=== PATIENT | male | born 1970 | race Caucasian/White ===

== ENCOUNTER 2024-04-16 07:41 | Emergency (ER) | payer MEDICARE, MEDICAID, SELFPAY ==
[2024-04-16 07:45] VITALS: BP 162/86; PULSE 104; RESP 18; TEMP 36.5; O2SAT 97
--- OUTSIDE RECORDS SUMMARY | 2024-04-16 08:25 | XMS_ITS | Encounter Summary ---
Author Organization [facility] Address [address] [place] [address] Care Team Providers Care Gray Tender Name Role Phone Kahlil Walker MD Primary Care Provider [phone] Reason for Visit * Reason Comments Med Refill Encounter Details Date Type Department Care Team (Late st Contact Info) Description 05/07/2022 Refill [facility] Medical [facility] Family Medicine [address] [place] [phone] Kahlil aWlker MD [address] [place] [address] Bilateral low back pain with sciatica, sciatica laterality unspecified, unspecified chronicity; Failed back syndrome; Chronic pain syndrome; Incomplete paraplegia (HCC); Lumbar radiculopathy Social History Tobacco Use Types Packs/Day Years Used Date Smoking Tobacco: Former Cigarettes Q uit: 2000 Smokeless Tobacco: Never Alcohol Use Standard Drinks/Week Comments No 0 (1 standard drink = 0.6 oz pur e alcohol) AUDIT-C Answer Date Recorded Frequency of Alcohol Consumption Never 12/19/2017 Average Number of Drinks Not on file 018 Frequency of Binge Drinking Not on file 11/22 PHQ-2 Answer Date Recorded PHQ-2 Score 0 08/04/2020 Sex and Gender Information Value Date Recorded Sex Assigned at Not on file Legal Sex Male 8:49 PM CDT Gender Identity Not on file Sexual Orientation Not on file documented as of this encounter Miscellaneous Notes * Telephone Encounter - Aimee Cho LPN - 05/07/2022 2:59 PM CDT Rx pended for approval. documented in this encounter Plan of Treatment Not on file documented as of this encounter Visit Diagnoses Diagnosis Bilateral low back pain with sciatica, sciatica laterality unspecified, unspecified chronicity Failed back syndrome Other unspecified back disorder Chronic pain syndrome Incomplete paraplegia (HCC) Lumbar radiculopathy Thoracic or lumbosacral neuritis or radiculitis, unspecified documented in this encounter Care Teams Gray Tender Relationship Specialty Start Date End Date Kahlil Walker MD [facility] [place] [address] PCP - General Family Medicine 08/02/16 documented as of this encounter
--- OUTSIDE RECORDS SUMMARY | 2024-04-16 08:25 | XMS_ITS | Encounter Summary ---
Author Organization [facility] Address Formerly [facility] [place] [address] Care Team Providers Care Toy Consultant Name Role Phone Kahlil Walker MD Primary Care Provider [phone] Encounter Details Date Type Department Care Team (Late st Contact Info) Description 08/15/2019 Orders Only [facility] Family Medicine [address] [place] [address] Kahlil Walker MD [address] [place] [address] Social History Tobacco Use Types Packs/Day Years Used Date Smoking Tobacco: Former Cigarettes Q uit: 2000 Smokeless Tobacco: Never Alcohol Use Standard Drinks/Week Comments No 0 (1 standard drink = 0.6 oz pur e alcohol) AUDIT-C Answer Date Recorded Frequency of Alcohol Consumption Never 12/19/2017 Average Number of Drinks Not on file 018 Frequency of Binge Drinking Not on file 11/22 Sex and Gender Information Value Date Recorded Sex Assigned at Not on file Legal Sex Male 8:49 PM CDT Gender Identity Not on file Sexual Orientation Not on file COVID-19 Exposure Response Date Recorded In the last month, have you been in contact with someone who was confirmed or suspected to have Coronavirus / COVID-19? No / Unsure 07/30/2019 11:48 AM CDT documented as of this encounter Plan of Treatment Not on file documented as of this encounter Visit Diagnoses Not on filedocumented in this encounter Care Teams Toy Consultant Relationship Specialty Start Date End Date Kahlil Walker MD [address] [place] [address] PCP - General Family Medicine 08/02/16 documented as of this encounter
--- OUTSIDE RECORDS SUMMARY | 2024-04-16 08:25 | XMS_ITS | Data Portability ---
Author Organization [place] - [facility] Address [address] [place] [address] Care Team Providers Care Plaster Form Maker Name Role Phone EBENEZER KAMINSKI General Surgeon SATISH DELCID Primary Care Provider [phone] EBENEZER KAMINSKI Referring Provider [phone] MARYSOL MARY Manager Programs [phone] Assessment Encounter Date Assessment Date Assessment LastModified by Organization Details LastModified Time 07/20/2023 07/20/2023 Opiod induce constipation Stable. Takes MOM and mineral oil prn -RTC in 3 months. Not available 07/20/2023 17:03:16 Plan of Treatment Reminders Order Date Submit Date Provider Last Modified By Organization Details Last Modified Time Details Appointments None recorded. Lab None recorded. Referral gastroenter ologist referral 2023 024 [email or web address] Marysol Mary MD, [address] [facility] , [address], [place], [address], 16:53:55 Procedures None recorded. Surgeries None recorded. Imaging None recorded. Medication Orders Relistor 12 mg/0.6 mL subcutaneou s syringe 2023 024 [id number], [address] [place], [address], 11:23:58 Milk of Magnesia 400 mg/5 mL oral suspension 2023 024 [id number], [address] [place], [address], 4 11:23:58 Patient TargetsNo targets recorded. Patient InstructionsNo instructions recorded. Reason for Referral Manager Programs Referral for Chronic constipation chronic opiod induced constipation Referring Physician: Elli Sol, General Surgery, Encounter Date: 07/11/2023 Problems Name Problem SNOMED Code Status Onset Date Resolution Date Notes Provider Name and Address Organization Details Recorded Time Dyspnea [id number] Daryl Kovacs null, [facility] 4 10:47:35 Fatigue 59008675 Active Cheri Kovacs null, [facility] 4 10:47:47 Constipation 84922815 Daryl Kovacs null, [facility] 4 10:49:07 Chronic back pain 179193713 Daryl Kovacs null, [facility] 4 10:49:19 Headache 95894412 Daryl Kovacs null, [facility] 4 10:49:30 Multiple skin tags 344656653 Daryl Kovacs null, [facility] 4 10:50:01 Kidney stone 12434025 Daryl Kovacs null, [facility] 4 10:50:34 Gastroesophage al reflux disease 343371938 Active Marni Leos null, [facility] 4 11:00:15 Essential hypertension 56253514 Daryl Kovacs null, [facility] 4 11:02:35 Arthritis 4219534 Daryl Kovacs null, [facility] 4 11:03:00 Obesity 526556802 Daryl Kovacs null, [facility] 4 11:03:16 Chronic constipation 832178149 Active 2023 ELLI SOL MD [address] [place], [address], [facility] 4 11:17:19 Problem Notes None recorded. Medical Equipment None Reported. Allergies No known drug allergies Medications Name Sig Start Date Stop Date Status Note LastModified by Organization Details LastModified Time Milk of Magnesia 400 mg/5 mL oral suspension Take 30 mL twice a day by oral route. 2023 active Not Available Not Available Not Avai lable famotidine 20 mg tablet Take 1 tablet twice a day by oral route. active Not Available Not Available No t Available Morphine Sulfate CR 60 mg tablet,exten ded release Take 1 tablet every 12 hours by oral route. active Not Available Not Available Not Available hydrocodone 7.5 mg-acetamino phen 325 mg tablet Take 1 tablet every 6 hours by oral route. active Not Available Not Available Not Available pantoprazole 40 mg tablet,delay ed release Take 1 tablet every day by oral route. active Not Available Not Available No t Available gabapentin 300 mg capsule Take 1 capsule 3 times a day by oral route. active Not Available Not Available No t Available metoprolol succinate ER 25 mg tablet,exten ded release 24 hr Take 2 tablets every day by oral route. active Not Available Not Available No t Available docusate sodium active Not Available Not Available Not Available Relistor 12 mg/0.6 mL subcutaneous syringe Inject 0.6 mL by subcutaneou s route for 10 days. 2023 active Not Available Not Available Not Avai lable methylphenid ate active Not Available Not Available Not Available glycopyrrola te (PF) active Not Available Not Available Not Available Vitals Date Recorded Body weight Body mass index (BMI) Body height Heart rate Oxygen saturation Oxygen saturation in Arterial blood by Pulse oximetry Systolic blood pressure Diastolic blood pressure Provider Name and Address Organization Details Last Updated DateTime 4 073385. 79 g 37.7 kg/m2 177.8 cm 87 /min 96 % 96 % 144 mm[Hg] 79 mm[Hg] Cheri Kovacs [facility] 4 10:42:58 Social History Question Answer Notes LastModified by Organizat ion Details LastModified Time Tobacco Smoking Status Former Smoker Cheri brooks [facility] 07/11/2023 10:52:28 What Is Your Level Of Alcohol Consumption? None [email or web address] Information not available 07/11/2023 What Is Your Level Of Caffeine Consumption? Occasional [email or web address] Information not available 07/11/2023 When Did You Quit Smoking? 16+yearssintrudy lux [email or web address] Information not available 07/11/2023 What Was The Date Of Your Most Recent Tobacco Screening? 07/20/2023 [email or web address] Information not available 07/20/2023 What Is Your Current Pack Years? 10packyears [email or web address] Information not available 07/11/2023 How Much Tobacco Do You Smoke? No [email or web address] Information not available 07/11/2023 Do You Use Any Illicit Or Recreational Drugs? No [email or web address] Information not available 07/11/2023 Has Tobacco Cessation Counseling Been Provided? No [email or web address] Information not available 07/11/2023 Do You Or Have You Ever Used Any Other Forms Of Tobacco Or Nicotine? No Information not available 07/11/2023 Sex: Unknown Functional Status None recorded. Mental Status None recorded. Family History Nothing Reported. Medical History Condition Response BLINDNESS N BLADDER PROBLEMS N KIDNEY STONES N SLEEP APNEA N MRSA N ALLERGIES/HAYFEVER N OTHER # 1 N LUNG DISEASE/DISORDER N HISTORY OF DRUG ABUSE N INSOMNIA N RADIATION / CHEMOTHERAPY N COPD N HIGH CHOLESTEROL / HYPERLIPIDEMIA N Other # 2 N BLOOD DISEASES N EDEMA N CAROTID BLOCKAGE N SHINGLES N BACK / NECK PROBLEMS N BOWEL PROBLEMS N DEPRESSION (INCLUDING POST ) N HAVE YOU BEEN HOSPITALIZED OR SEEN [facility] IN THE PAST YEAR ? N MIGRAINES N STROKE/TIA N THYROID DISEASE N BENIGN PROSTATIC HYPERPLASIA N HYPOTENSION N PARAPELGIA N OBESITY N GERD/NAUSEA N HISTORY WITH COMPLICATIONS WITH ANESTHES IA ? N ANEURYSM N FIBROMYALGIA N OSTEOPOROSIS N URINARY/BLADDER/KIDNEY PROBLEMS N CORONARY ARTERY DISEASE (CAD) N Do you have Advance directive? N ARTHRITIS N Do you have a healthcare POA? N USE OF BLOOD THINNERS N NO SIGNIFICANT PAST MEDICAL HISTORY N DIABETES, TYPE N HEARTBURN / REFLUX N GASTROINTESTINAL BLEEDING N Do you have a living will? N BLOOD CLOTS N ASTHMA N HEPATITIS / LIVER DISEASE N PULMONARY DISEASE N USE OF NSAIDS N GOUT N ALZHEIMER'S DISEASE N HERPES N DEMENTIA N HEADACHES/MIGRAINES N SEIZURES/EPILEPSY N CHF N VASCULAR DISEASE N PACEMAKER N Blood Disorder N DIZZINESS N HEART DISEASE/HEART PROBLEMS N NEUROPATHY N AIDS/HIV N KIDNEY DISEASE N CHEMOTHERAPY / RADIATION N LIVER DISEASE N MENTAL DISORDER/ILLNESS N CARDIAC ARRHYTHMIA N CANCER: SPECIFY N TOURETTE'S N BLADDER/KIDNEY N ANXIETY DISORDER N BLOOD TRANSFUSION N ANESTHESIA COMPLICATIONS N ANEMIA/BLOOD DISORDER N ATRIAL FIBRILLATION N BRONCHITIS N AUTOIMMUNE DISEASE N DEAF/HEARING IMPAIRED N TUBERCULOSIS N GLAUCOMA N ABDOMINAL PAIN Y FOOT PROBLEM N Past Encounters Encounter ID Performer Location Encounter Start Date Encounter Closed Date Diagnosis/Indication Diagnosis SNOMED-CT Code Diagnosis ICD10 Code Diagnosis Note [id number] ELLI SOL MD [address] [place] [address] 07/11/2023 10:19:33 07/11/2023 11:25:37 Chronic constipation 867973570 K59.09 52M presenting with chronic constipati on d/t chronic opiod use. I will prescribe him a short course of relistor and milk of magnesia. He will referred to Gastroente rology for further evaluation of chronic constipati on, to r/o functional causes. His last colonoscop y was ~5-6 yrs ago and he refuses one as of now. He may f/u PRN. [id number] MARYSOL MARY MD [address] [place] [address] 07/20/2023 15:33:25 07/20/2023 16:14:09 Constipation 16340828 K59.00 Health Concerns Section Related Observation LastModified by Organization Detai ls LastModified Time None Recorded Concern Status LastModified by Organization Details LastModified Time None Recorded Advance Directives Directive None Recorded Payers Encounter Date Sequence Insurance Name Policy Number Policy Eller Covered Member ID Eller Member ID Guarantor Name 07/11/2023 2 [place] [employer] [facility] [id number] [facility] 07/11/2023 1 [place] Steven Gunn Jr [id number] Steven Gunn 07/20/2023 2 [place] [employer] [place] [employer] Steven [facility] [id number] [facility] 07/20/2023 1 [place] Steven Gunn Jr [id number] Steven Gunn Notes Date Note Type Note Provider Name and Address Organization Details Recorded Time 07/11/2023 text/html 52M presenting w ith chronic constipation. The patient is on chronic opiods for back pain. He was recently hospitalized due to consiptation, which was relieved by Go-lytely administration via NGT. He has been tolerating a diet. His last BM was on 06/28. Denies chest pains/SOB/fevers/chi lls. No nausea/vomiting. His last colonoscopy was ~5-6 yrs ago and he remembers benign results. ELLI SOL MD [address] [place], [address], [facility] 07/11/2023 11:24:47 07/20/2023 text/html This is a 52 y/o WM with hx of chronic back pain, opiod induce constipation, htn, who comes in for tx of chronic constipation. He presently have taken MON and mineral oil and haad several bowel movements. MARYSOL MARY MD [address] [place], [address], [facility] 07/20/2023 17:03:53
--- OUTSIDE RECORDS SUMMARY | 2024-04-16 08:25 | XMS_ITS | Encounter Summary ---
Author Organization [facility] Address [facility] [place] [address] Care Team Providers Care Painter Interior Finish Name Role Phone Kahlil Walker MD Primary Care Provider [phone] Encounter Details Date Type Department Care Team (Late st Contact Info) Description 06/23/2021 Orders Only [facility] Family Medicine [address] [place] [phone] Kahlil Walker MD [address] [place], [place] [address] Failed back syndrome; Chronic low back pain with sciatica, sciatica laterality unspecified, unspecified back pain laterality; ADHD (attention deficit hyperactivity disorder), combined type Social History Tobacco Use Types Packs/Day Years [...] on file documented as of this encounter Plan of Treatment Not on file documented as of this encounter Visit Diagnoses Diagnosis Failed back syndrome Other unspecified back disorder Chronic low back pain with sciatica, sciatica laterality unspecified, unspecified back pain laterality ADHD (attention deficit hyperactivity disorder), combined type Attention deficit disorder with hyperactivity documented in this encounter Care Teams Painter Interior Finish Relationship Specialty Start Date End Date Kahlil Walker MD [address] [place] [address] PCP - General Family Medicine 08/02/16 documented as of this encounter
--- OUTSIDE RECORDS SUMMARY | 2024-04-16 08:25 | XMS_ITS | Encounter Summary ---
Author Organization [facility] Address [facility]ly [facility], [facility] [place] [address] Care Team Providers Care Senior Talent Acquisition Specialist Name Role Phone Kahlil Walker MD Primary Care Provider [phone] Encounter Details Date Type Department Care Team (Late st Contact Info) Description 01/20/2022 Orders Only [facility] Family Medicine [address] [phone] Kahlil Walker MD [address] [place], [place] [address] Failed back syndrome; Chronic low back pain [...] hyperactivity documented in this encounter Care Teams Senior Talent Acquisition Specialist Relationship Specialty Start Date End Date Kahlil Walker MD [address] [place] [address] PCP - General Family Medicine 08/02/16 documented as of this encounter
--- OUTSIDE RECORDS SUMMARY | 2024-04-16 08:25 | XMS_ITS | Encounter Summary ---
Author Organization [facility] Address [facility] [place] [address] Care Team Providers Care Marine Cargo Surveyor Name Role Phone Kahlil Walker MD Primary Care Provider Reason for Visit * Reason Comments Med Refill Encounter Details Date Type Department Care Team (Late st Contact Info) Description 07/07/2020 Refill [facility] Family Medicine [address] [place] [phone] Kahlil Walker MD [address] [place] [address] Social History Tobacco Use Types Packs/Day Years [...] on filedocumented in this encounter Care Teams Marine Cargo Surveyor Relationship Specialty Start Date End Date Kahlil Walker MD [address] [place] [address] PCP - General Family Medicine 08/02/16 documented as of this encounter
--- OUTSIDE RECORDS SUMMARY | 2024-04-16 08:25 | XMS_ITS | Clinical Summary ---
Author Organization [facility] Address [facility] [place] [address] Care Team Providers Care Green Chain Puller Name Role Phone Unavailable Primary Care Provider Unavailabl e Social History Tobacco Use Types Packs/Day Years Used Date Smoking Tobacco: Never Assessed Sex and Gender Information Value Date Recorded Sex Assigned at Not on file Legal Sex Male 10:42 AM CDT Gender Identity Not on file Sexual Orientation Not on file Plan of Treatment Health Maintenance Due Date Last Done Comments Colorectal Cancer Screening Colonoscopy (10 Years) 1972 Annual Physical 12/30/1975 Hepatitis C 1990 DTaP, Tdap and Td Vaccines ( 1 - Tdap) 12/30/1991 Hepatitis B Vaccines (1 of 3 - 19+ 3-dose series) 12/30/1991 Zoster Vaccines (1 of 2) 2022 COVID-19 Vaccine ( - 2023-2 5 season) 2023 Influenza Adult (#1) 2023 Meningococcal B Vaccine Aged Out No l onger eligible based on patient's age to complete this topic Meningococcal Vaccine Aged Out No av sharlene eligible based on patient's age to complete this topic Pneumococcal Vaccine: Pediat rics (0 to 5 Years) and At-Risk Patients (6 to 64 Years) Aged Out No longer eligible b ased on patient's age to complete this topic RSV Immunizations Under 20 Months Aged Out No longer eligible based on patient's age to complete this topic Insurance MEDICARE MEDICAID
--- OUTSIDE RECORDS SUMMARY | 2024-04-16 08:25 | XMS_ITS | Referral Summary ---
Author Organization [facility] Address [address] [place] [address] Care Team Providers Care Bankruptcy Legal Assistant Name Role Phone Kahlil Walker MD Primary Care Provider Allergies Active Allergy Reactions Criticality Noted Date Comments Adhesive Other (See comments) High 03/12/2014 Other reaction(s): some tapes and bandaids cause rash Paper tape only Medications famotidine (PEPCID) 20 mg tabletIndications: Heartburn Take 20 mg by mouth 2 (two) times a day 1 Active gabapentin (NEURONTIN) 600 mg tabletIndications: Neuropathic Pain Take 600 mg by mouth 4 (four) times a day 1 Active glycopyrrolate (ROBINUL) 1 mg tabletIndications: Irritable Bowel Syndrome,sweating Take 1 mg by mouth 3 (three) times a day 1 Active methylphenidate ER (METADATE ER) 20 mg CR tabletIndications: Attention-Deficit Hyperactivity Disorder Take 60 mg by mouth every morning 1 Active metoprolol XL (TOPROL-XL) 50 mg extended release tabletIndications: hypertension Take 50 mg by mouth every morning 1 Active morphine ER (MS CONTIN) 60 mg 12 hr tabletIndications: severe chronic pain requiring long-term opioid treatment Take 60 mg by mouth 2 (two) times a day [address] (PROTONIX) 40 mg EC tabletIndications: Treatment of Non-Bleeding Gastric Disorder Take 40 mg by mouth every morning 1 Active valACYclovir (VALTREX) 1 gram tabletIndications: cold sore flare up Take 1,000 mg by mouth as needed 1 Active oxyCODONE (ROXICODONE) 10 mg tabletIndications: Pain Take 1 tablet (10 mg total) by mouth every 4 (four) hours as needed for pain 40 tablet 1 Active aspirin 81 mg enteric coated tabletIndications: Deep Vein Thrombosis Prevention Take 1 tablet (81 mg total) by mouth 2 (two) times a day for 14 days 28 tablet 1 Active acetaminophen 500 mg capsuleIndications :Pain Take 2 capsules (1,000 mg total) by mouth every 6 (six) hours 100 tablet 1 Active cyclobenzaprine (FLEXERIL) 10 mg tablet Take 1 tablet (10 mg total) by mouth every 8 (eight) hours as needed for muscle spasms 30 tablet 1 Active docusate sodium (COLACE) 100 mg capsuleIndications :constipation Take 1 capsule (100 mg total) by mouth 2 (two) times a day 30 capsule 1 Active Active Problems Problem Noted Date Diagnosed Date Rotator cuff arthropathy of right shoulder 01/02 Overview (01/02/2021): Added automatically from request for surgery [id number] Acquired hypothyroidism 06/06/2020 Fever blister 12/28/2017 Palpitations 12/28/2017 Chronic fatigue 07/14/2017 Essential hypertension 07/14/2017 Hypogonadism in male 03/16/2017 Excessive sweating 11/12/2016 Vision changes 11/12/2016 ADHD (attention deficit hype ractivity disorder), combined type 08/02/2016 Chronic pain syndrome 07/02/2015 Incomplete paraplegia (CMS/HCC) 07/02/2015 Lumbar radiculopathy 09/18/2014 Myositis 05/28/2014 Low back pain 10/27/2012 Social History Tobacco Use Types Packs/Day Years Used Date Smoking Tobacco: Former Cigarettes 1 15 1 985 - 1999 Smokeless Tobacco: Former AUDIT-C Answer Date Recorded Q1: How often do you have a drink containing alc ohol? Never 01/27/2021 Average Number of Drinks Not on file 021 Frequency of Binge Drinking Not on file 08/2020 Sex and Gender Information Value Date Recorded Sex Assigned at Not on file Legal Sex Male 6:14 AM LIGHT FIXTURE SERVICER Gender Identity Not on file Sexual Orientation Not on file Last Filed Vital Signs Vital Sign Reading Time Taken Comments Blood Pressure 145/75 02/01/2021 4:03 PM LIGHT FIXTURE SERVICER Pulse 90 02/01/2021 4:03 PM LIGHT FIXTURE SERVICER Temperature 36.4 C (97.6 F) 02/01/2021 3:39 PM LIGHT FIXTURE SERVICER Respiratory Rate 16 02/01/2021 3:39 PM LIGHT FIXTURE SERVICER Oxygen Saturation 98% 02/01/2021 3:39 PM LIGHT FIXTURE SERVICER Inhaled Oxygen Concentration - - Weight 125.6 kg (276 lb 14.4 oz) 01/29/2021 4:40 PM LIGHT FIXTURE SERVICER Height 177.8 cm (5' 10 ) 01/29/2021 4:40 PM LIGHT FIXTURE SERVICER Body Mass Index 39.73 01/29/2021 4:40 PM LIGHT FIXTURE SERVICER Plan of Treatment Not on file Medical Devices Implanted Type Area Flue Tile Press Operator Device Identifier Shelf Expiration Date Model / Serial / Lot [employer] Inc [id number] Aequalis Perform Reversed Od6.5 Mm L40 Mm Central Glenoid Screw Baseplate Nonsterile - [id number] Implanted:Qty: 1 on 01/29/2021 by Chadwick Mena MD at [facility] Screw Right: Shoulder [employer] [id number] / / [employer] [id number] Aequalis Perform Reversed 5mm 34mm Peripheral Glenoid Screw - [id number] Implanted:Qty: 1 on 01/29/2021 by Chadwick Mean MD at [facility] Screw Right: Shoulder [employer] [id number] / / [employer] [id number] Aequalis Perform Reversed Od5 Mm L46 Mm Peripheral Glenoid Screw Baseplate Nonsterile - [id number] Implanted:Qty: 1 on 01/29/2021 by Chadwick Mena MD at [facility] Screw Right: Shoulder [employer] [id number] / / [employer] [id number] Tornier Aequalis Perform 25mm Lateralize Augment Reverse Shoulder - [id number] - [id number] Implanted:Qty: 1 on 01/29/2021 by Chadwick Mena MD at [facility] Right: Shoulder [employer] [id number] 09/22/2025 [id number] / [id number] / [employer] [id number] Insert Perform [id number] - [id number] - [id number] Implanted:Qty: 1 on 01/29/2021 by Chadwick Mena MD at [facility] Right: Shoulder [employer] [id number] 11/01/2024 [id number] / [id number] / [employer] [id number] Stem Perform Sz 3 Humeral - [id number] - [id number] Implanted:Qty: 1 on 01/29/2021 by Chadwick Mena MD at [facility] Right: Shoulder [employer] [id number] 03/23/2025 [id number] / [id number] / [employer] [id number] Tornier Aequalis Perform 39mm Reverse Shoulder Standard Sphere - [id number] Implanted:Qty: 1 on 01/29/2021 by Chadwick Mena MD at [facility] [employer] [id number] / / Insurance MEDICARE [facility] Advance Directives For more information, please contact: [phone] * Full Code (Latest Code Status on File) Date Activated Date Inactivated Comments 01/29/2021 4:51 PM 02/01/2021 10:25 PM Care Teams Bankruptcy Legal Assistant Relationship Specialty Start Date End Date Kahlil Walker MD PCP - General Family Practice 12/23/20
--- OUTSIDE RECORDS SUMMARY | 2024-04-16 08:25 | XMS_ITS | Encounter Summary ---
Author Organization [facility] Address [facility] [place] [address] Care Team Providers Care Marinator Name Role Phone Kahlil Walker MD Primary Care Provider [phone] Encounter Details Date Type Department Care Team (Late st Contact Info) Description 05/21/2019 Orders Only [facility] Family Medicine [address] [place] [phone] Kahlil Walker MD [address] [place], [place] [address] Social History Tobacco Use Types Packs/Day Years [...] on filedocumented in this encounter Care Teams Marinator Relationship Specialty Start Date End Date Kahlil Walker MD [address] [place] [address] PCP - General Family Medicine 08/02/16 documented as of this encounter
--- OUTSIDE RECORDS SUMMARY | 2024-04-16 08:25 | XMS_ITS | Encounter Summary ---
Author Organization [facility] Address [facility] [place] [address] Care Team Providers Care Intelligence Consultant Name Role Phone Kahlil Walker MD Primary Care Provider [phone] Encounter Details Date Type Department Care Team (Late st Contact Info) Description 05/12/2022 Orders Only [facility] Family Medicine [address] [place] [address] Kahlil Walker MD [address] [place], [place] [id number] Failed back syndrome; Chronic low back pain with sciatica, sciatica laterality unspecified, unspecified back pain laterality Social History Tobacco Use Types Packs/Day Years [...] sciatica laterality unspecified, unspecified back pain laterality documented in this encounter Care Teams Intelligence Consultant Relationship Specialty Start Date End Date Kahlil Walker MD [address] [place] [address] PCP - General Family Medicine 08/02/16 documented as of this encounter
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
--- OUTSIDE RECORDS SUMMARY | 2024-04-16 08:25 | XMS_ITS | Encounter Summary ---
Author Organization [facility] Address [address] [place] [address] Care Team Providers Care Bicycle Racer Name Role Phone Kahlil Walker MD Primary Care Provider [phone] Reason for Visit * Reason Comments Med Refill Encounter Details Date Type Department Care Team (Late st Contact Info) Description 03/09/2019 Refill [facility] Medical [facility] Family Medicine [address] [place] [phone] Kahlil Walker MD [address] [place] [address] Attention deficit hyperactivity disorder (ADHD), predominantly inattentive type; Chronic low back pain with sciatica, sciatica laterality unspecified, unspecified back pain laterality; Failed back syndrome Social History Tobacco Use Types Packs/Day Years [...] as of this encounter Visit Diagnoses Diagnosis Attention deficit hyperactivity disorder (ADHD), 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
--- OUTSIDE RECORDS SUMMARY | 2024-04-16 08:25 | XMS_ITS | Encounter Summary ---
Author Organization [facility] Address [address] [place] [address] Care Team Providers Care Keyboard Instrument Tuner Name Role Phone Kahlil Walker MD Primary Care Provider [phone] Reason for Visit * Reason Comments Med Refill Encounter Details Date Type Department Care Team (Late st Contact Info) Description 03/09/2019 Refill [facility] Medical [facility] Family Medicine [address] [place] [phone] Kahlil Walker MD [address] [place] [address] Attention deficit hyperactivity disorder (ADHD), predominantly inattentive [...] disorder documented in this encounter Care Teams Keyboard Instrument Tuner Relationship Specialty Start Date End Date Kahlil Walker MD [address] [place], [place] [address] PCP - General Family Medicine 08/02/16 documented as of this encounter
--- OUTSIDE RECORDS SUMMARY | 2024-04-16 08:25 | XMS_ITS | Encounter Summary ---
Author Organization [facility] Address [facility] [place] [address] Care Team Providers Care Director Financial Services Name Role Phone Kahlil Walker MD Primary Care Provider [phone] Encounter Details Date Type Department Care Team (Late st Contact Info) Description 11/12/2021 Telephone [facility] Medical Group Family Medicine [address] [place] [phone] Kahlil Walker MD [address] [place], [place] [phone] Social History Tobacco Use Types Packs/Day Years [...] on filedocumented in this encounter Care Teams Director Financial Services Relationship Specialty Start Date End Date Kahlil Walker MD [address] [place], [place] [id number] PCP - General Family Medicine 08/02/16 documented as of this encounter
--- OUTSIDE RECORDS SUMMARY | 2024-04-16 08:26 | XMS_ITS | Encounter Summary ---
Author Organization [facility] Address [facility] [place] [address] Care Team Providers Care Mapping Pilot Name Role Phone Kahlil Walker MD Primary Care Provider [phone] Encounter Details Date Type Department Care Team (Late st Contact Info) Description 11/14/2023 Orders Only [facility] Medical Group Family Medicine [address] [place] [address] Kahlil Walker MD [address] [place], [place] [id number] Failed back syndrome; Chronic low back pain [...] hyperactivity documented in this encounter Care Teams Mapping Pilot Relationship Specialty Start Date End Date Kahlil Walker MD [address] [place] [address] PCP - General Family Medicine 08/02/16 documented as of this encounter
--- OUTSIDE RECORDS SUMMARY | 2024-04-16 08:26 | XMS_ITS | Encounter Summary ---
Author Organization [facility] Address [facility] [place] [address] Care Team Providers Care Relief Operator Name Role Phone Kahlil Walker MD Primary Care Provider [phone] Reason for Visit * Reason Comments Med Refill Encounter Details Date Type Department Care Team (Late st Contact Info) Description 01/10/2017 Refill [facility] Medical [facility] Family Medicine [address] [place] [phone] Kahlil Walker MD [address] [place] [address] Social History Tobacco Use Types Packs/Day Years [...] on filedocumented in this encounter Care Teams Relief Operator Relationship Specialty Start Date End Date Kahlil Walker MD [address] [place] [address] PCP - General Family Medicine 08/02/16 documented as of this encounter
--- OUTSIDE RECORDS SUMMARY | 2024-04-16 08:26 | XMS_ITS | Encounter Summary ---
Author Organization [facility] Address [facility] [place] [address] Care Team Providers Care Commercial Underwriter Name Role Phone Kahlil Walker MD Primary Care Provider [phone] Reason for Visit * Reason Comments Med Refill Encounter Details Date Type Department Care Team (Late st Contact Info) Description 04/12/2017 Refill [facility] Medical [facility] Family Medicine [address] [place] [phone] Kahlil Walker MD [address] [place] [address] Social History Tobacco Use Types Packs/Day Years [...] on filedocumented in this encounter Care Teams Commercial Underwriter Relationship Specialty Start Date End Date Kahlil Walker MD [address] [place] [address] PCP - General Family Medicine 08/02/16 documented as of this encounter
--- OUTSIDE RECORDS SUMMARY | 2024-04-16 08:26 | XMS_ITS | Encounter Summary ---
Author Organization [facility] Address [facility] [place] [address] Care Team Providers Care Paint Line Supervisor Name Role Phone Kahlil Walker MD Primary Care Provider [phone] Reason for Visit * Reason Comments Med Refill Encounter Details Date Type Department Care Team (Late st Contact Info) Description 10/07/2017 Refill [facility] Medical [facility] Family Medicine [address] [place] [phone] Kahlil Walker MD [address] [place] [address] Social History Tobacco Use Types Packs/Day Years [...] on filedocumented in this encounter Care Teams Paint Line Supervisor Relationship Specialty Start Date End Date Kahlil Walker MD [address] [place] [address] PCP - General Family Medicine 08/02/16 documented as of this encounter
--- OUTSIDE RECORDS SUMMARY | 2024-04-16 08:26 | XMS_ITS | Encounter Summary ---
Author Organization [facility] Address [facility] [place] [address] Care Team Providers Care Shellacker Name Role Phone Kahlil Walker MD Primary Care Provider Reason for Visit * Reason Comments Med Refill Encounter Details Date Type Department Care Team (Late st Contact Info) Description 03/31/2020 Refill [facility] Family Medicine [address] [place] [phone] Kahlil Walker MD [address] [place] [address] Social History Tobacco Use Types Packs/Day Years [...] on filedocumented in this encounter Care Teams Shellacker Relationship Specialty Start Date End Date Kahlil Walker MD [address] [place] [address] PCP - General Family Medicine 08/02/16 documented as of this encounter
--- OUTSIDE RECORDS SUMMARY | 2024-04-16 08:26 | XMS_ITS | Encounter Summary ---
Author Organization [facility] Address [facility] [place] [address] Care Team Providers Care Recycling Worker Name Role Phone Kahlil Walker MD Primary Care Provider [phone] Reason for Visit * Reason Comments Med Refill Encounter Details Date Type Department Care Team (Late st Contact Info) Description 04/14/2020 Refill [facility] Medical Group Family Medicine [address] [place] [phone] Kahlil Walker MD [address] [place] [address] Social History Tobacco Use Types Packs/Day Years [...] on filedocumented in this encounter Care Teams Recycling Worker Relationship Specialty Start Date End Date Kahlil Walker MD [address] [place] [address] PCP - General Family Medicine 08/02/16 documented as of this encounter
--- OUTSIDE RECORDS SUMMARY | 2024-04-16 08:26 | XMS_ITS | Encounter Summary ---
Author Organization [facility] Address [address] [place] [address] Care Team Providers Care Rate Reviewer Name Role Phone Kahlil Walker MD Primary Care Provider [phone] Encounter Details Date Type Department Care Team (Late st Contact Info) Description 01/24/2024 Orders Only [facility] Family Medicine [address] [place] [address] Kahlil Walker MD [address] [place] [address] Encounter for long-term opiate analgesic use (Primary Dx); Chronic pain syndrome Social History Tobacco Use Types Packs/Day [...] on file documented as of this encounter Results * Drug Screen, Pain Management Reflex to Quantitative, Urine (03/12/2024 2:37 PM PROFESSOR COMPUTER SCIENCE) Amphetamines, Urn, Screen Negative Cutoff 300 ng/mL 03/14/2024 12:25 PM PROFESSOR COMPUTER SCIENCE [facility] Comment: Presumptive Negative by immunoassay. Testing by mass spectrometry is available on request. Barbiturates, Urn, Screen Negative Cutoff 200 ng/mL 03/14/2024 12:25 PM PROFESSOR COMPUTER SCIENCE [facility] Comment: Presumptive Negative by immunoassay. Testing by mass spectrometry is available on request. Benzodiazepines, Urn, Screen Negative Cutoff 200 ng/mL 03/14/2024 12:25 PM PROFESSOR COMPUTER SCIENCE [facility] Comment: Presumptive Negative by immunoassay. Testing by mass spectrometry is available on request. Buprenorphine, Urn, Screen Negative Cutoff 5 ng/mL 03/14/2024 12:25 PM PROFESSOR COMPUTER SCIENCE [facility] Comment: Presumptive Negative by immunoassay. Testing by mass spectrometry is available on request. Carisoprodol, Urn, Screen Negative Cutoff 100 ng/mL 03/14/2024 12:25 PM PROFESSOR COMPUTER SCIENCE [facility] Comment: Presumptive Negative by immunoassay. Testing by mass spectrometry is available on request. INTERPRETIVE INFORMATION:Carisoprodol, Urn, Screen This test was developed and its performance characteristics determined by [facility]. It has not been cleared or approved by the U.S. Food and Drug Administration. This test was performed in a CLIA-certified laboratory and is intended for clinical purposes. Cocaine, Urn, Screen Negative Cutoff 150 ng/mL 03/14/2024 12:25 PM PROFESSOR COMPUTER SCIENCE [facility] Comment: Presumptive Negative by immunoassay. Testing by mass spectrometry is available on request. Ethyl Glucuronide, Urn, Screen Negative Cutoff 500 ng/mL 03/14/2024 12:25 PM PROFESSOR COMPUTER SCIENCE [facility] Comment: Presumptive Negative by immunoassay. Testing by mass spectrometry is available on request. INTERPRETIVE INFORMATION: Ethyl Glucuronide Screen with Reflex to Confirmation, Urine Ethyl glucuronide is a direct metabolite of ethanol and can be detected up to 80 hours in urine after ethanol ingestion. The cutoff for positive by immunoassay is set at 500 ng/mL. A positive result will be confirmed by liquid chromatography tandem mass spectrometry (LC-MS/MS). Fentanyl, Urn, Screen Negative Cutoff 1 ng/mL 03/14/2024 12:25 PM PROFESSOR COMPUTER SCIENCE [facility] Comment: Presumptive Negative by immunoassay. Testing by mass spectrometry is available on request. Meperidine, Urn, Screen Negative Cutoff 200 ng/mL 03/14/2024 12:25 PM PROFESSOR COMPUTER SCIENCE [facility] Comment: Presumptive Negative by immunoassay. Testing by mass spectrometry is available on request. Methadone, Urn, Screen Negative Cutoff 150 ng/mL 03/14/2024 12:25 PM PROFESSOR COMPUTER SCIENCE [facility] Comment: Presumptive Negative by immunoassay. Testing by mass spectrometry is available on request. Opiates, Urn, Screen PresumptivePOS Cutoff 300 ng/mL 03/14/2024 12:25 PM PROFESSOR COMPUTER SCIENCE [facility] Comment: If the screen is PresumptivePos, then confirmation testing by mass spectrometry will be added. Additional charges will apply. Oxycodone/Oxymorph one, Urn, Screen Negative Cutoff 100 ng/mL 03/14/2024 12:25 PM PROFESSOR COMPUTER SCIENCE [facility] Comment: Presumptive Negative by immunoassay. Testing by mass spectrometry is available on request. Phencyclidine, Urn, Screen Negative Cutoff 25 ng/mL 03/14/2024 12:25 PM PROFESSOR COMPUTER SCIENCE [facility] Comment: Presumptive Negative by immunoassay. Testing by mass spectrometry is available on request. Propoxyphene, Urn, Screen Negative Cutoff 300 ng/mL 03/14/2024 12:25 PM PROFESSOR COMPUTER SCIENCE [facility] Comment: Presumptive Negative by immunoassay. Testing by mass spectrometry is available on request. Tapentadol, Urn, Screen Negative Cutoff 200 ng/mL 03/14/2024 12:25 PM PROFESSOR COMPUTER SCIENCE [facility] Comment: Presumptive Negative by immunoassay. Testing by mass spectrometry is available on request. INTERPRETIVE INFORMATION:Tapentadol, Urn, Screen This test was developed and its performance characteristics determined by [facility]. It has not been cleared or approved by the U.S. Food and Drug Administration. This test was performed in a CLIA-certified laboratory and is intended for clinical purposes. Tramadol, Urn, Screen Negative Cutoff 100 ng/mL 03/14/2024 12:25 PM PROFESSOR COMPUTER SCIENCE [facility] Comment: Presumptive Negative by immunoassay. Testing by mass spectrometry is available on request. THC, Urn, Screen Negative Cutoff 50 ng/mL 03/14/2024 12:25 PM PROFESSOR COMPUTER SCIENCE [facility] Comment: Presumptive Negative by immunoassay. Testing by mass spectrometry is available on request. Zolpidem, Urn, Screen Negative Cutoff 20 ng/mL 03/14/2024 12:25 PM PROFESSOR COMPUTER SCIENCE [facility] Comment: Presumptive Negative by immunoassay. Testing by mass spectrometry is available on request. Creatinine, Urine 52.9 20.0 - 400.0 mg/dL 03/14/2024 12:25 PM PROFESSOR COMPUTER SCIENCE [facility] Screen, Urine Interpretation 03/14/2024 12:25 PM PROFESSOR COMPUTER SCIENCE [facility] Comment: INTERPRETIVE INFORMATION: The absence of expected drug(s) and/or drug metabolite(s) may indicate non-compliance, inappropriate timing of specimen collection relative to drug administration, poor drug absorption, diluted/adulterated urine, or limitations of testing. The concentration at which the screening test can detect a drug or metabolite varies. Specimens for which drugs or drug classes are detected by the screen are reflexed to a second, more specific technology (GC/MS and/or LC-MS/MS). The concentration value must be greater than or equal to the cutoff to be reported as positive. Interpretive questions should be directed to the laboratory. For medical purposes only; not valid for forensic use. Performed By: [address] [address] Chief Technologist: Pancho Larios MD, PhD CLIA Number: [id number] Urine Voided urine specimen / Unknown Non-blood Collection / Unknown 03/12/2024 2:37 PM PROFESSOR COMPUTER SCIENCE 03/12/2024 2:37 PM PROFESSOR COMPUTER SCIENCE Narrative [facility] - 03/14/2024 12:25 PM PROFESSOR COMPUTER SCIENCE Source: Unconfirmed Specimen Start Date: us Kahlil Walker MD LAB URINE ORDERABLES Final Resul t [address] [address] documented in this encounter Visit Diagnoses Diagnosis Encounter for long-term opiate analgesic use- Primary Encounter for long-term (current) use of other medications Chronic pain syndrome documented in this encounter Care Teams Rate Reviewer Relationship Specialty Start Date End Date Kahlil Walker MD [facility] [place] [address] PCP - General Family Medicine 08/02/16 documented as of this encounter
--- OUTSIDE RECORDS SUMMARY | 2024-04-16 08:26 | XMS_ITS | Encounter Summary ---
Author Organization [facility] Address On license of [facility] [place] [address] Care Team Providers Care Seconds Handler Name Role Phone Kahlil Walker MD Primary Care Provider [phone] Reason for Visit * Reason Comments Med Refill Encounter Details Date Type Department Care Team (Late st Contact Info) Description 02/15/2018 Refill [facility] Family Medicine [address] [place] [phone] Kahlil Walker MD [address] [place] [address] Social History Tobacco Use Types Packs/Day Years Used Date Smoking Tobacco: Never Alcohol Use Standard Drinks/Week Comments [...] on filedocumented in this encounter Care Teams Seconds Handler Relationship Specialty Start Date End Date Kahlil Walker MD [address] [place] [address] PCP - General Family Medicine 08/02/16 documented as of this encounter
--- OUTSIDE RECORDS SUMMARY | 2024-04-16 08:26 | XMS_ITS | Encounter Summary ---
Author Organization [facility] Address [facility] [place] [address] Care Team Providers Care Reproduction Production Manager Name Role Phone Kahlil Walker MD Primary Care Provider [phone] Reason for Visit * Reason Comments Med Refill Encounter Details Date Type Department Care Team (Late st Contact Info) Description 05/17/2018 Refill [facility] Family Medicine [address] [place] [phone] Kahlil Walker MD [address] [place] [place] [address] Social History Tobacco Use Types Packs/Day Years [...] on filedocumented in this encounter Care Teams Reproduction Production Manager Relationship Specialty Start Date End Date Kahlil Walker MD [address] [place] [address] PCP - General Family Medicine 08/02/16 documented as of this encounter
--- OUTSIDE RECORDS SUMMARY | 2024-04-16 08:26 | XMS_ITS | Encounter Summary ---
Author Organization [facility] Address [facility] [place] [address] Care Team Providers Care Underground Heavy Equipment Operator Name Role Phone Kahlil Walker MD Primary Care Provider [phone] Encounter Details Date Type Department Care Team (Late st Contact Info) Description 02/07/2020 Orders Only [facility] Medical Group Family Medicine [address] [place] [phone] Kahlil Walker MD [address] [place] [address] Social History Tobacco Use Types Packs/Day Years [...] on filedocumented in this encounter Care Teams Underground Heavy Equipment Operator Relationship Specialty Start Date End Date Kahlil Walker MD [address] [place] [address] PCP - General Family Medicine 08/02/16 documented as of this encounter
--- OUTSIDE RECORDS SUMMARY | 2024-04-16 08:26 | XMS_ITS | Encounter Summary ---
Author Organization [facility] Address [facility] [place] [address] Care Team Providers Care Physical Therapy Supervisor Name Role Phone Kahlil Walker MD Primary Care Provider [phone] Reason for Visit * Reason Comments Med Refill Encounter Details Date Type Department Care Team (Late st Contact Info) Description 11/05/2017 Refill [facility] [address] [facility] Family Medicine [address] [phone] Kahlil Walker MD [address] [place], [place] [address] Social History Tobacco Use Types Packs/Day Years Used Date Smoking Tobacco: Never Assessed Sex and Gender Information Value Date Recorded Sex Assigned at Not on file Legal Sex Male 8:49 PM CDT Gender Identity Not on file Sexual Orientation Not on file documented as of this encounter Miscellaneous Notes * Telephone Encounter - Francheska Lemons CMA - 11/07/2017 8:29 AM CDT Escribed 11/05 documented in this encounter Plan of Treatment Not on file documented as of this encounter Visit Diagnoses Not on filedocumented in this encounter Care Teams Physical Therapy Supervisor Relationship Specialty Start Date End Date Kahlil Walker MD [address] [place], [place] [address] PCP - General Family Medicine 08/02/16 documented as of this encounter
--- OUTSIDE RECORDS SUMMARY | 2024-04-16 08:26 | XMS_ITS | Encounter Summary ---
Author Organization [facility] Address [facility] [place] [address] Care Team Providers Care Ambulatory Care Nurse Name Role Phone Kahlil Walker MD Primary Care Provider [phone] Encounter Details Date Type Department Care Team (Late st Contact Info) Description 05/08/2023 Orders Only [facility] Family Medicine [address] [place] [phone] Kahlil Walker MD [address] [place], [place] [id number] Social History Tobacco Use Types Packs/Day Years [...] on filedocumented in this encounter Care Teams Ambulatory Care Nurse Relationship Specialty Start Date End Date Kahlil Walker MD [address] [place], [place] [address] PCP - General Family Medicine 08/02/16 documented as of this encounter
--- OUTSIDE RECORDS SUMMARY | 2024-04-16 08:26 | XMS_ITS | Encounter Summary ---
Author Organization [facility] Address [facility] [place] [address] Care Team Providers Care Paper Feeder Name Role Phone Kahlil Walker MD Primary Care Provider [phone] Reason for Visit * Reason Comments Med Refill Encounter Details Date Type Department Care Team (Late st Contact Info) Description 08/31/2017 Refill [facility] Family Medicine [address] [place] [phone] Kahlil Walker MD [address] [place] [address] Social History Tobacco Use Types Packs/Day Years [...] on filedocumented in this encounter Care Teams Paper Feeder Relationship Specialty Start Date End Date Kahlil Walker MD [address] [place] [address] PCP - General Family Medicine 08/02/16 documented as of this encounter
--- OUTSIDE RECORDS SUMMARY | 2024-04-16 08:26 | XMS_ITS | Encounter Summary ---
Author Organization [facility] Address [facility] [place] [address] Care Team Providers Care Supervisor Record Press Name Role Phone Kahlil Walker MD Primary Care Provider [phone] Encounter Details Date Type Department Care Team (Late st Contact Info) Description 02/20/2024 Orders Only [facility] Family Medicine [address] [place] [address] Kahlil Walker MD [address] [place] [address] Lumbar radiculopathy Social History Tobacco Use Types [...] as of this encounter Visit Diagnoses Diagnosis Lumbar radiculopathy Thoracic or lumbosacral neuritis or radiculitis, unspecified documented in this encounter Care Teams Supervisor Record Press Relationship Specialty Start Date End Date Kahlil Walker MD [address] [place] [address] PCP - General Family Medicine 08/02/16 documented as of this encounter
--- OUTSIDE RECORDS SUMMARY | 2024-04-16 08:26 | XMS_ITS | Encounter Summary ---
Author Organization [facility] Address [address] [place] [address] Care Team Providers Care Perl Software Engineer Name Role Phone Kahlil Walker MD Primary Care Provider [phone] Encounter Details Date Type Department Care Team (Late st Contact Info) Description 09/13/2019 Orders Only [facility] Medical [facility] Neurology [address] [place] [phone] Chidi Ochoa MD Chronic pain syndrome; Failed back syndrome; Lumbar radiculopathy Social History Tobacco Use Types [...] have Coronavirus / COVID-19? No / Unsure 09/04/2019 11:18 AM CDT documented as of this encounter Plan of Treatment Not on file documented as of this encounter Procedures Procedure Name Priority Date/Time Associated Diagnosis Comments MRI LUMBAR SPINE WO CONTRAST Routine 09/12/2019 12:46 PM CDT Chronic pain syndrome Failed back syndrome Lumbar radiculopathy documented in this encounter Results * MRI lumbar spine without contrast (09/12/2019 12:46 PM CDT) Anatomical Region Laterality Modality L-spine Magnetic Resonan ce us Chidi Ochoa MD IMG MRI PROCEDURES Final Resu lt documented in this encounter Visit Diagnoses Diagnosis Chronic pain syndrome Failed back syndrome Other unspecified back disorder Lumbar radiculopathy Thoracic or lumbosacral neuritis or radiculitis, unspecified documented in this encounter Care Teams Perl Software Engineer Relationship Specialty Start Date End Date Kahlil Walker MD [address] [place] [id number] PCP - General Family Medicine 08/02/16 documented as of this encounter
--- OUTSIDE RECORDS SUMMARY | 2024-04-16 08:26 | XMS_ITS | Encounter Summary ---
Author Organization [facility] Address [facility] [place] [address] Care Team Providers Care Clinical Psychologist Private Practice Name Role Phone Kahlil Walker MD Primary Care Provider [phone] Encounter Details Date Type Department Care Team (Late st Contact Info) Description 12/20/2023 Orders Only [facility] Family Medicine [address] [place] [address] Kahlil Walker MD [address] [place] [address] Lumbar radiculopathy (Primary Dx) Social History Tobacco Use Types Packs/Day Years Used Date Smoking Tobacco: Former Cigarettes Q uit: 1999 Smokeless Tobacco: Never Alcohol Use Standard Drinks/Week [...] of this encounter Visit Diagnoses Diagnosis Lumbar radiculopathy- Primary Thoracic or lumbosacral neuritis or radiculitis, unspecified documented in this encounter Care Teams Clinical Psychologist Private Practice Relationship Specialty Start Date End Date Kahlil Walker MD [address] [place] [address] PCP - General Family Medicine 08/02/16 documented as of this encounter
--- OUTSIDE RECORDS SUMMARY | 2024-04-16 08:26 | XMS_ITS | Clinical Summary ---
Author Organization [facility] Address [address] [place] [id number] Care Team Providers Care Brokerage Coordinator Name Role Phone Kahlil Walker MD Primary Care Provider [phone] Allergies Active Allergy Reactions Criticality Noted Date Comments Adhesive High 03/12/2014 Other reaction(s): some tapes and bandaids cause rash - Medications ibuprofen 200 mg capsule Take 200 mg by mouth as needed. 04/14/19 10 Active docusate sodium (COLACE) 100 mg capsuleIndication s:Failed back syndrome,Chronic low back pain with sciatica, sciatica laterality unspecified, unspecified back pain laterality Take 1 capsule (100 mg total) by mouth 2 (two) times a day 60 capsule 11 06/24/19 22 Active naloxone (NARCAN) 4 mg/actuation spray,non-aerosol nasal sprayIndications: Failed back syndrome,Chronic low back pain with sciatica, sciatica laterality unspecified, unspecified back pain laterality,ADHD (attention deficit hyperactivity disorder), combined type Administer 1 spray into one nostril as needed (for overdose) May repeat every 2 to 3 minutes in alternating nostrils until medical assistance becomes available. 2 each 07/28/19 22 Active pantoprazole (PROTONIX) 40 mg EC tabletIndications :Gastroesophageal reflux disease, unspecified whether esophagitis present TAKE 1 TABLET BY MOUTH DAILY TO REDUCE STOMACH ACID 90 tablet 2 11/21/19 24 Active metoprolol SUCCINATE XL (TOPROL-XL) 50 mg 24 hr tabletIndications :Essential hypertension TAKE 1 TABLET BY MOUTH DAILY FOR BLOOD PRESSURE OR HEART 90 tablet 2 11/21/19 24 Active glycopyrrolate (ROBINUL) 1 mg tabletIndications :Incomplete paraplegia (HCC) TAKE 1 TABLET BY MOUTH 3 TIMES A DAY NEEDED FOR ABDOMINAL PAIN 270 tablet 2 11/21/19 24 Active famotidine (PEPCID) 20 mg tabletIndications :Well adult exam TAKE 1 TABLET BY MOUTH TWICE A DAY 180 tablet 1 11/21/19 24 Active dexAMETHasone (DECADRON) 4 mg tabletIndications :Incomplete paraplegia (HCC),Bilateral low back pain with sciatica, sciatica laterality unspecified, unspecified chronicity,Failed back syndrome,Chronic pain syndrome,Lumbar radiculopathy TAKE 1 TABLET BY MOUTH 2 TIMES A DAY WITH MEALS. (14 TABS SHOULD LAST 30 DAYS, ONLY USE IF NEEDED) 14 tablet 2 02/27/19 25 Active lidocaine (Lidoderm) 5 % patchIndications: Failed back syndrome,Chronic pain syndrome,Incomple te paraplegia (HCC),Lumbar radiculopathy Apply 1 patch topically daily Remove & discard patch within 12 hours or as directed by MD. 30 patch 2 03/12/19 25 Active gabapentin (NEURONTIN) 600 mg tabletIndications :Acute right-sided low back pain with sciatica, sciatica laterality unspecified Take 1 tablet (600 mg total) by mouth 4 (four) times a day FOR PAIN IN THE NERVE ENDINGS. 360 tablet 1 03/23/19 25 Active methylphenidate ER (METADATE ER) 20 mg CR tabletIndications :ADHD (attention deficit hyperactivity disorder), combined type Take 3 tablets (60 mg total) by mouth every morning 90 tablet 03/23/19 25 Active morphine (MS Contin) 15 mg 12 hr tabletIndications :Lumbar radiculopathy Take 1 tablet (15 mg total) by mouth 2 (two) times a day 60 tablet 03/23/19 25 Active valACYclovir (VALTREX) 1 gram tabletIndications :Essential hypertension TAKE TWO TABLETS BY MOUTH TWO TIMES A DAY for 2 days 8 tablet 5 03/23/19 25 Active valACYclovir (VALTREX) 1 gram tabletIndications :Essential hypertension TAKE TWO TABLETS BY MOUTH TWO TIMES A DAY for 2 days 8 tablet 5 07/21/19 24 025 Discontin ued(Reord er*) gabapentin (NEURONTIN) 600 mg tabletIndications :Acute right-sided low back pain with sciatica, sciatica laterality unspecified TAKE 1 TABLET (600 MG TOTAL) BY MOUTH 4 (FOUR) TIMES A DAY FOR PAIN IN THE NERVE ENDINGS. 360 tablet 11/21/19 24 025 Discontin ued(Reord er*) methylphenidate ER (METADATE ER) 20 mg CR tabletIndications :ADHD (attention deficit hyperactivity disorder), combined type Take 3 tablets (60 mg total) by mouth every morning 90 tablet 01/24/20 24 025 Discontin ued(Reord er*) morphine (MS Contin) 15 mg 12 hr tabletIndications :Lumbar radiculopathy Take 1 tablet (15 mg total) by mouth 2 (two) times a day 60 tablet 02/20/20 24 025 Discontin ued(Reord er*) Active Problems Problem Noted Date Diagnosed Date Slow transit constipation 03/12/2024 Assessment & Plan (03/12/2024 3:21 PM RANGE MECHANIC): Moderate risk Chronic Little better with otc remedies. Acquired hypothyroidism 06/06/2020 Encounter for long-term opiate analgesic use 12/2018 Failed back syndrome 06/01/2018 Assessment & Plan (03/12/2024 3:10 PM RANGE MECHANIC): Moderate risk Chronic Working to reduce opiates: numerous state and federal guidelines pushing this. Will continue to work on this. Palpitations 12/28/2017 Fever blister 12/28/2017 Chronic fatigue 07/14/2017 Essential hypertension 07/14/2017 Hypogonadism in male 03/16/2017 Excessive sweating 11/12/2016 Vision changes 11/12/2016 ADHD (attention deficit hype ractivity disorder), combined type 08/02/2016 Chronic pain syndrome 07/02/2015 Incomplete paraplegia 07/02/2015 Lumbar radiculopathy 09/18/2014 Assessment & Plan (03/12/2024 3:16 PM RANGE MECHANIC): Moderate risk Chronic Working to reduce opiates: numerous state and federal guidelines pushing this. Will continue to work on this. New rx lidocaine patch Myositis 05/28/2014 Low back pain 10/27/2012 Resolved Problems Problem Noted Date Diagnosed Date Resolved Date Chronic pain syndrome 09/04/20192019 Chest pain 12/18/2017 06/01/2018 Generalized abdominal pain 11/12/2016 0 06/01/2018 Paraplegia 10/27/2012 12/28/2017 Encounters Date Type Department Care Team Description 03/23/[address] [place] [phone] Kahlil Walker MD Acute right-sided low back pain with sciatica, sciatica laterality unspecified; ADHD (attention deficit hyperactivity disorder), combined type; Lumbar radiculopathy; Essential hypertension 03/12/2024 3:15 PM RANGE MECHANIC Office Visit [address] [place] [phone] Kahlil Walker MD Failed back syndrome (Primary Dx); Chronic pain syndrome; Incomplete paraplegia (HCC); Lumbar radiculopathy; Slow transit constipation 02/27/[address] [phone] Kahlil Walker MD Incomplete paraplegia (HCC); Bilateral low back pain with sciatica, sciatica laterality unspecified, unspecified chronicity; Failed back syndrome; Chronic pain syndrome; Lumbar radiculopathy 02/20/2024 Orders Only [address] [phone] Kahlil Walker MD Lumbar radiculopathy 02/20/[address] [phone] Kahlil Walker MD Med Management (Med refills) 01/24/[address] [place] [phone] Kahlil Walker MD Appointment (Medication check up) 01/24/[address] [place] [phone] Debra Juarez LPN Appointment 01/24/2024 Orders Only [address] [place] [phone] Kahlil Walker MD Encounter for long-term opiate analgesic use (Primary Dx); Chronic pain syndrome 01/24/2024 Refill [facility] [address] [place] [phone] Kahlil Walker MD ADHD (attention deficit hyperactivity disorder), combined type; Failed back syndrome; Chronic low back pain with sciatica, sciatica laterality unspecified, unspecified back pain laterality; Lumbar radiculopathy from Last 3 Months Family History Medical History Relation Comments Alcohol abuse Father Cancer Maternal Grandmother Dementia Maternal Grandmother Other Other no family h/o ba ck condition Relation Status Comments Father Maternal Grandmother Other Social History Tobacco Use Types Packs/Day Years Used Date Smoking Tobacco: Former Cigarettes Q uit: 1999 Smokeless Tobacco: Never Tobacco Cessation:Counseling Given: Not Answered Alcohol Use Standard Drinks/Week Comments No 0 (1 standard drink = 0.6 oz pur e alcohol) AUDIT-C Answer Date Recorded Frequency of Alcohol Consumption Never 12/19/2017 Average Number of Drinks Not on file 018 Frequency of Binge Drinking Not on file 11/22 PHQ-2 Answer Date Recorded Patient Health Questionnaire-2 Score 0 03/12/2024 Sex and Gender Information Value Date Recorded Sex Assigned at Not on file Legal Sex Male 8:49 PM CDT Gender Identity Not on file Sexual Orientation Not on file Last Filed Vital Signs Vital Sign Reading Time Taken Comments Blood Pressure 150/90 03/12/2024 2:53 PM RANGE MECHANIC Pulse 97 03/12/2024 2:53 PM RANGE MECHANIC Temperature 37.3 C (99.2 F) 03/12/2024 2:53 PM RANGE MECHANIC Respiratory Rate 18 03/12/2024 2:53 PM RANGE MECHANIC Oxygen Saturation 97% 03/12/2024 2:53 PM RANGE MECHANIC Inhaled Oxygen Concentration - - Weight 114 kg (251 lb) 03/12/2024 2:53 PM RANGE MECHANIC Height 177.8 cm (5' 10 ) 08/04/2020 2:03 PM CDT Body Mass Index 36.01 08/04/2020 2:03 PM CDT Plan of Treatment Health Maintenance Due Date Last Done Comments CT Colonography 1972 Colonoscopy 1972 Colorectal Cancer Screening 1972 FIT-DNA 1972 FIT 1972 FOBT 1972 Prostate Cancer Screening PSA 1972 Sigmoidoscopy 1972 MMR Vaccines (1 of 1 - Stand rajesh series) 1973 DTaP,Tdap,and Td Vaccines (1 - Tdap) 12/30/1979 Varicella Vaccines (1 of 2 - 13+ 2-dose series) 1985 Hepatitis B Vaccines (1 of 3 - 19+ 3-dose series) 12/30/1991 COVID-19 Vaccine (1 - 2023-2 5 season) 2023 Influenza Vaccine (#1) 2023 RSV Vaccines and 60 Years or Older (1 - 1-dose 75+ series) 12/30/2047 AMB Pneumococcal 0-64 yrs Aged Out No longer eligible based on patient's age to complete this topic HIB Vaccines Aged Out No longer eligi ble based on patient's age to complete this topic HPV Vaccines Aged Out No longer eligi ble based on patient's age to complete this topic Hepatitis A Vaccines Aged Out No long er eligible based on patient's age to complete this topic IPV Vaccines Aged Out No longer eligi ble based on patient's age to complete this topic Meningococcal ACWY Vaccine Aged Out N o longer eligible based on patient's age to complete this topic Meningococcal B Vaccine Aged Out No l onger eligible based on patient's age to complete this topic RSV Vaccines <20 Months Aged Out No l onger eligible based on patient's age to complete this topic Procedures Procedure Name Priority Date/Time Associated Diagnosis Comments OPIATES, URINE, QUANTITATIVE Early AM 03/12/2024 2:37 PM RANGE MECHANIC Encounter for long-term opiate analgesic use Chronic pain syndrome DRUG SCREEN, PAIN MANAGEMENT REFLEX TO QUANTITATIVE, URINE Routine 03/12/2024 2:37 PM RANGE MECHANIC Encounter for long-term opiate analgesic use Chronic pain syndrome from Last 3 Months Results * Opiates, Quantitative, Urine (03/12/2024 2:37 PM RANGE MECHANIC) Hydrocodone, Urn, Quant 184 ng/mL 03/16/2024 7:08 PM RANGE MECHANIC [facility] Hydromorphone, Urn, Quant <20 ng/mL 03/16/2024 7:08 PM [facility] Codeine, Urn, Quant <20 ng/mL 03/16 7:08 PM [facility] Morphine, Urn, Quant 875 ng/mL 03/16/2024 7:08 PM [facility] 6-acetylmorphine, Urn, Quant <10 ng/mL 03/16/2024 7:08 PM [facility] Comment: INTERPRETIVE INFORMATION: Opiates, Urine, Quantitative Methodology: Quantitative Liquid Chromatography-Tandem Mass Spectrometry Positive cutoff: 20 ng/mL except as specified below 6-acetylmorphine 10 ng/mL For medical purposes only; not valid for forensic use. Identification of specific drug(s) taken by specimen donor is problematic due to common metabolites, some of which are prescription drugs themselves. The absence of expected drug(s) and/or drug metabolite(s) may indicate non-compliance, inappropriate timing of specimen collection relative to drug administration, poor drug absorption, diluted/adulterated urine, or limitations of testing. All drug analytes covered are in the non-glucuronidated (free) forms. The concentration value must be greater than or equal to the cutoff to be reported as positive. A very small amount of an unexpected drug analyte in the presence of a large amount of an expected drug analyte may reflect pharmaceutical impurity. Interpretive questions should be directed to the laboratory. This test was developed and its performance characteristics determined by [facility] It has not been cleared or approved by the [place] Food and Drug Administration. This test was performed in a CLIA certified laboratory and is intended for clinical purposes. Noroxycodone, Urn, Quant <20 ng/mL 03/16/2024 7:08 PM [facility] Noroxymorphone, Urn, Quant <20 ng/mL 03/16/2024 7:08 PM [facility] Oxycodone, Urn, Quant <20 ng/mL 03/16/2024 7:[address] [facility] Oxymorphone, Urn, Quant <20 ng/mL 03/16/2024 7:08 PM [facility] Norhydrocodone, Urn, Quant 169 ng/mL 03/16/2024 7:08 PM [facility] Comment: Performed By: [facility] [employer] Relationships [address] [place] [address] [employer]: Pancho Larios MD, PhD CLIA Number: [id number] Urine Voided urine specimen / Unknown Non-blood Collection / Unknown 03/12/2024 2:37 PM RANGE MECHANIC 03/12/2024 2:37 PM RANGE MECHANIC Narrative [facility] - 03/16/2024 7:08 PM RANGE MECHANIC Source: Unconfirmed Specimen Start Date: us Kahlil Walker MD LAB URINE ORDERABLES Final Resul t [facility] [address] [place] [address] * Drug Screen, Pain Management Reflex to Quantitative, Urine (03/12/2024 2:37 PM RANGE MECHANIC) Amphetamines, Urn, Screen Negative Cutoff 300 ng/mL 03/14/2024 12:25 PM RANGE MECHANIC [facility] Comment: Presumptive Negative by immunoassay. Testing by mass spectrometry is available on request. Barbiturates, Urn, Screen Negative Cutoff 200 ng/mL 03/14/2024 12:25 PM RANGE MECHANIC [facility] Comment: Presumptive Negative by immunoassay. Testing by mass spectrometry is available on request. Benzodiazepines, Urn, Screen Negative Cutoff 200 ng/mL 03/14/2024 12:25 PM RANGE MECHANIC [facility] Comment: Presumptive Negative by immunoassay. Testing by mass spectrometry is available on request. Buprenorphine, Urn, Screen Negative Cutoff 5 ng/mL 03/14/2024 12:25 PM RANGE MECHANIC [facility] Comment: Presumptive Negative by immunoassay. Testing by mass spectrometry is available on request. Carisoprodol, Urn, Screen Negative Cutoff 100 ng/mL 03/14/2024 12:25 PM RANGE MECHANIC [facility] Comment: Presumptive Negative by immunoassay. Testing by mass spectrometry is available on request. INTERPRETIVE INFORMATION:Carisoprodol, Urn, Screen This test was developed and its performance characteristics determined by [facility] [employer]. It has not been cleared or approved by the U.S. Food and Drug Administration. This test was performed in a CLIA-certified laboratory and is intended for clinical purposes. Cocaine, Urn, Screen Negative Cutoff 150 ng/mL 03/14/2024 12:25 PM RANGE MECHANIC [facility] Comment: Presumptive Negative by immunoassay. Testing by mass spectrometry is available on request. Ethyl Glucuronide, Urn, Screen Negative Cutoff 500 ng/mL 03/14/2024 12:25 PM RANGE MECHANIC [facility] Comment: Presumptive Negative by immunoassay. [...] Negative Cutoff 1 ng/mL 03/14/2024 12:25 PM RANGE MECHANIC [facility] Comment: Presumptive Negative by immunoassay. Testing by mass spectrometry is available on request. Meperidine, Urn, Screen Negative Cutoff 200 ng/mL 03/14/2024 12:25 PM RANGE MECHANIC [facility] Comment: Presumptive Negative by immunoassay. Testing by mass spectrometry is available on request. Methadone, Urn, Screen Negative Cutoff 150 ng/mL 03/14/2024 12:25 PM RANGE MECHANIC [facility] Comment: Presumptive Negative by immunoassay. Testing by mass spectrometry is available on request. Opiates, Urn, Screen PresumptivePOS Cutoff 300 ng/mL 03/14/2024 12:25 PM RANGE MECHANIC [facility] Comment: If the screen is PresumptivePos, then confirmation testing by mass spectrometry will be added. Additional charges will apply. Oxycodone/Oxymorph one, Urn, Screen Negative Cutoff 100 ng/mL 03/14/2024 12:25 PM RANGE MECHANIC [facility] Comment: Presumptive Negative by immunoassay. Testing by mass spectrometry is available on request. Phencyclidine, Urn, Screen Negative Cutoff 25 ng/mL 03/14/2024 12:25 PM RANGE MECHANIC [facility] Comment: Presumptive Negative by immunoassay. Testing by mass spectrometry is available on request. Propoxyphene, Urn, Screen Negative Cutoff 300 ng/mL 03/14/2024 12:25 PM RANGE MECHANIC [facility] Comment: Presumptive Negative by immunoassay. Testing by mass spectrometry is available on request. Tapentadol, Urn, Screen Negative Cutoff 200 ng/mL 03/14/2024 12:25 PM RANGE MECHANIC [facility] Comment: Presumptive Negative by immunoassay. Testing by mass spectrometry is available on request. INTERPRETIVE INFORMATION:Tapentadol, Urn, Screen This test was developed and its performance characteristics determined by [facility]. It has not been cleared or approved by the U.S. Food and Drug Administration. This test was performed in a CLIA-certified laboratory and is intended for clinical purposes. Tramadol, Urn, Screen Negative Cutoff 100 ng/mL 03/14/2024 12:25 PM RANGE MECHANIC [facility] Comment: Presumptive Negative by immunoassay. Testing by mass spectrometry is available on request. THC, Urn, Screen Negative Cutoff 50 ng/mL 03/14/2024 12:25 PM RANGE MECHANIC [facility] Comment: Presumptive Negative by immunoassay. Testing by mass spectrometry is available on request. Zolpidem, Urn, Screen Negative Cutoff 20 ng/mL 03/14/2024 12:25 PM RANGE MECHANIC [facility] Comment: Presumptive Negative by immunoassay. Testing by mass spectrometry is available on request. Creatinine, Urine 52.9 20.0 - 400.0 mg/dL 03/14/2024 12:25 PM RANGE MECHANIC [facility] Screen, Urine Interpretation 03/14/2024 12:25 PM RANGE MECHANIC [facility] Comment: INTERPRETIVE INFORMATION: The absence of [...] not valid for forensic use. Performed By: [facility] [address] [place] [id number] [employer]: Pancho Larios MD, PhD CLIA Number: [id number] Urine Voided urine specimen / Unknown Non-blood Collection / Unknown 03/12/2024 2:37 PM RANGE MECHANIC 03/12/2024 2:37 PM RANGE MECHANIC [facility] - 03/14/2024 12:25 PM RANGE MECHANIC Source: Unconfirmed Specimen Start Date: us Kahlil Walker MD LAB URINE ORDERABLES Final Resul t [facility] [address] [place] [address] from Last 3 Months Insurance MEDICARE MEDICAID [place] Advance Directives For more information, please contact: [phone] * Full Code (Latest Code Status on File) Date Activated Date Inactivated Comments 12/19/2017 4:19 AM 12/19/2017 5:26 PM Care Teams Brokerage Coordinator Relationship Specialty Start Date End Date Kahlil Walker MD [address] [place], [place] [id number] PCP - General Family Medicine 08/02/16
--- NOTE | 2024-04-16 08:31 | ED.GENADULT ---
HPI - General Adult General Chief complaint: Back Pain/Injury Stated complaint: R side back pain Time Seen by Provider: 04/16/24 08:01 History of Present Illness HPI narrative: 53-year-old male presents to the emergency department for evaluation for acute on chronic back and pain into the right leg. Patient states this pain does occur intermittently and patient does have history back surgery. Patient states that he currently has a family member admitted to the hospital and patient has been staying in the hospital and sitting in a chair more than usual. Patient states the pain radiates from his right lower back and down to mid thigh. Patient states that feels like a lightning strike. Patient does have good range of motion of that but is having intermittent pain. Does have history of footdrop on that side and denies any new change in sensation numbness or weakness. Patient denies any change in bowel or bladder habits Related Data Allergies Allergy/AdvReac Type Severity Reaction Status Date / Time No Known Allergies Allergy Verified 04/16/24 07:52 Review of Systems Review of Systems: All systems reviewed & are unremarkable except as noted in HPI and below Exam Narrative: APPEARANCE: Uncomfortable appearing due to right leg pain HEAD: normocephalic, atraumatic. EYES: PERRLA/EOMI, conjunctivae clear. NOSE: Normal no drainage EARS:TMS clear with good light reflex. THROAT: Pharynx clear, no exudate. NECK: Supple. No adenopathy, no masses. RESPIRATORY: Airway patent, respirations nonlabored. Clear to auscultation bilaterally, no rales, rhonchi, wheezing. CARDIOVASCULAR: Regular rate and rhythm without murmurs rubs or gallops. ABDOMINAL: Soft, nontender, nondistended, normal bowel sounds MUSCULOSKELETAL: Moves all extremities. Strength/ROM intact, No edema, No calf tenderness. NEURO: Alert. Cranial nerves II through XII intact. Grossly intact SKIN: Warm, dry. Normal Color Course Vital Signs Vital signs: Vital Signs Temperature 97.7 F 04/16/24 07:45 Pulse Rate 104 H 04/16/24 07:45 Respiratory Rate 18 04/16/24 07:45 Blood Pressure 162/86 H 04/16/24 07:45 Pulse Oximetry 97 04/16/24 07:45 Oxygen Delivery Room Air 04/16/24 07:45 Temperature 97.7 F 04/16/24 07:45 Pulse Rate 94 02/24/25 08:48 Respiratory Rate 18 04/16/24 08:48 Blood Pressure 140/88 04/16/24 08:48 Pulse Oximetry 98 04/16/24 08:48 Oxygen Delivery Room Air 04/16/24 07:45 Medical Decision Making MDM Narrative Medical decision making narrative: 53-year-old male presenting emergency department for evaluation for right leg pain consistent with sciatica. Patient was started on anti-inflammatories muscle relaxants and medications for pain control emergency department. Patient was discharged home on a Medrol Dosepak, muscle relaxant provided a short course of narcotic pain medication. Patient was encouraged close follow-up with primary care physician. Patient is also advised he may benefit from follow-up with pain management. Differential Diagnosis Differential Diagnosis: Sciatica, muscular strain, neuropathy Vital Signs Vital Signs: Vital Signs Temperature 97.7 F 04/16/24 07:45 Pulse Rate 104 H 04/16/24 07:45 Respiratory Rate 18 04/16/24 07:45 Blood Pressure 162/86 H 04/16/24 07:45 Pulse Oximetry 97 04/16/24 07:45 Oxygen Delivery Room Air 04/16/24 07:45 Temperature 97.7 F 04/16/24 07:45 Pulse Rate 94 04/16/24 08:48 Respiratory Rate 18 04/16/24 08:48 Blood Pressure 140/88 04/16/24 08:48 Pulse Oximetry 98 04/16/24 08:48 Oxygen Delivery Room Air 04/16/24 07:45 Discharge Plan Discharge Clinical Impression: Sciatica Patient Disposition: Home, Self-Care Condition: Stable Instructions: Antibiotic Form, Sciatica (ED) Additional Instructions: Ibuprofen for pain control. Medrol Dosepak as directed. Flexeril for muscle spasm. You should have close follow-up with her primary care physician and you should also have follow-up with pain management. If you have any worsening symptoms then please call or return to the emergency department. Patient Language: Vietnamese Prescriptions: New cyclobenzaprine 10 mg tablet 10 mg PO BID PRN (Reason: muscle spasm) Qty: 14 0RF methylprednisolone [Medrol (Geovany)] 4 mg tablets,dose pack See Rx Instructions .ROUTE .COMPLEX Qty: 21 0RF Rx Instructions: for 6 days Follow-up/Referrals: UNKNOWN,DOCTOR [Primary Care Provider] -
[2024-04-16] MEDS: HYDROcodone/acetaminophen (*CRX) 7.5-325 MG TABLET 1 TAB PO (08:39)
[2024-04-16] MEDS: CYCLOBENZAPRINE HCL 10 MG TABLET PO (08:40)
[2024-04-16 08:41] VITALS: BP 140/88; PULSE 95; RESP 20; O2SAT 96
[2024-04-16] MEDS: KETOROLAC (*BKC) 60 MG/2 ML VIAL IM (08:42)
[2024-04-16 08:48] VITALS: BP 140/88; PULSE 94; RESP 18; O2SAT 98
== END 2024-04-16 08:56 | disposition home or self-care (01) ==
PROVIDERS: Emergency Provider Emergency Medicine
DX: M54.41 Lumbago with sciatica, right side (principal)
CPT/HCPCS: 96372; 99283; A9270; J1885